=== PATIENT | male | born 1985 | race Caucasian/White ===

== ENCOUNTER 2017-05-09 19:22 | Emergency (ER) | payer OTHER ==
[~2017-05-09] VITALS: Ht 182.9 cm; Wt 95.5 kg
[2017-05-09 19:27] VITALS: TEMP 98.8
[2017-05-09 20:06] LABS: HEMATOCRIT 45.7 % (42.0-52.0); HEMOGLOBIN 16.1 g/dl (13.5-18.0); MEAN CELL VOLUME 85 fl (80.0-100.0); MEAN CORPUSCULAR HEMOGLOBIN 30 pg (27.0-31.0); MEAN CORPUSCULAR HGB CONC 35 g/dl (33.0-37.0); MEAN PLATELET VOLUME 10.2 fl (7.4-10.4); PLATELET COUNT 228 K/mm3 (130-400); RED BLOOD COUNT 5.38 M/mm3 (4.20-5.60); REDCELL DISTRIBUTION WIDTH-CV 12.6 % (11.5-14.5); WHITE BLOOD COUNT 9.3 K/mm3 (4.8-10.8)
[2017-05-09 20:15] LABS: CALCIUM 9.4 mg/dL (8.4-10.2); CREATININE, serum 0.85 mg/dL (0.66-1.25); POTASSIUM 3.9 mmol/L (3.4-5.0)
[2017-05-09] MEDS ORDERED: LITHIUM 60600 MG/CAP PO (20:20)
[2017-05-09] MEDS ORDERED: GEODON 40MG40 MG PO (20:20)
[2017-05-09] MEDS ORDERED: ATIVAN2 MG PO (20:21)
[2017-05-09 20:34] LABS: ADD PATHOLOGY DIFF REVIEW NO
[2017-05-09 20:49] LABS: BASOPHIL 1 % (0-2); EOSINOPHIL 3 % (0-4); NEUTROPHILS 78 % (42.0-75.2); TOTAL CELLS COUNTED 100
[2017-05-09 20:50] LABS: ANISOCYTOSIS 1+; POIKILOCYTOSIS 1+; ROULEAUX 1+; STOMATOCYTE 1+
[2017-05-09 20:52] LABS: LITHIUM 0.5 mmol/L (0.6-1.2)
[2017-05-09] MEDS ORDERED: GEODON 20 MG20 MG PO (21:45)
[2017-05-09] MEDS ORDERED: LITHIUM 30300 MG/CAP PO (21:45)
[2017-05-09 22:00] LABS: AMPHETAMINE URINE NEGATIVE; BARBITURATES URINE NEGATIVE; BENZODIAZEPINES URINE NEGATIVE; BUPRENORPHINE URINE NEGATIVE; METHADONE URINE NEGATIVE; OPIATES URINE NEGATIVE; OXYCODONE URINE NEGATIVE; PHENCYCLIDINE URINE NEGATIVE; PROPOXYPHENE URINE NEGATIVE; THC CANNABINOIDS URINE NEGATIVE
[2017-05-09 22:49] VITALS: BP 125/94; PULSE 89
== END 2017-05-09 22:50 | disposition home or self-care (01) ==
LOC: COL.ER 19:22 → EDSEX 19:39 → COL.ER 19:39
PROVIDERS: Physician Assistant
DX: F31.9 Bipolar disorder, unspecified (principal); F25.9 Schizoaffective disorder, unspecified

== ENCOUNTER → 2017-05-12 | Outpatient (CLI) | payer OTHER ==
[~2017-05-12] MED LIST: ATIVAN2 MG PO; GEODON 20 MG20 MG PO; GEODON 40MG40 MG PO; LITHIUM 30300 MG/CAP PO; LITHIUM 60600 MG/CAP PO
== END ==
LOC: COL.LAB 11:17
DX: Z51.81 Encounter for therapeutic drug level monitoring (principal); F31.9 Bipolar disorder, unspecified; Z79.899 Other long term (current) drug therapy

== ENCOUNTER → 2017-06-30 | Outpatient (CLI) | payer OTHER | LOC: BHSO 11:01 | DX: F25.0 Schizoaffective disorder, bipolar type (principal) ==